=== PATIENT | female | born 1980 | race Caucasian/White ===

== ENCOUNTER 2016-11-17 12:13 | Emergency (ER) | payer MEDICAID ==
[~2016-11-17] VITALS: Ht 170.2 cm; Wt 84.0 kg
[~2016-11-17 12:13] MED LIST: ARIP30TA PO; ASPI-621 PO; CITA20TA9 PO; DOCU-30 PO; FOLI-17 PO; OXYC5TAB3 PO; QUET300T5 PO; RISP2TAB3 PO; VENL75TA PO; WARF5TAB7 PO; ZIPR20CA3 PO
[2016-11-17] MEDS ORDERED: ASPI-496 PO (12:29)
[2016-11-17] MEDS ORDERED: SODIUM CHLORIDE 0.9%, 500ML IVBOLUS ONE (13:00)
[2016-11-17 13:07] LABS: BLOOD UREA NITROGEN 8 mg/dL (7-18)
[2016-11-17 13:44] VITALS: BP 115/73
[2016-11-17] MEDS ORDERED: OMNIPAQUE 350 MG/ML, 100ML BOTTLE ONE (14:15)
[2016-11-17] MEDS ORDERED: MORPHINE SULFATE 4 MG/ML, 1ML ONE (14:21)
[2016-11-17] MEDS ORDERED: MORPHINE SULFATE 4 MG/ML, 1ML IVPush ONE (15:00)
[2016-11-17] MEDS ORDERED: PHYTONADIONE 5 MG TABLET PO ONE (15:30)
[2016-11-17 16:14] LABS: PATH.CAST-FLAG NOT PRESENT; SPERM-FLAG NOT PRESENT; SRC-FLAG NOT PRESENT; XTAL-FLAG NOT PRESENT; YLC-FLAG NOT PRESENT
== END 2016-11-17 17:02 | disposition home or self-care (01) ==
LOC: ED 16:36
DX: R10.9 Unspecified abdominal pain (principal); R79.1 Abnormal coagulation profile; M54.9 Dorsalgia, unspecified
CPT/HCPCS: 36415; 74177; 80048; 81001; 82040; 84703; 85025; 85610; 96361; 96374; 99285; J7040; Q9967

== ENCOUNTER 2016-11-18 08:26 | Inpatient (IN) | payer MEDICAID ==
[~2016-11-18] VITALS: Ht 170.2 cm; Wt 86.8 kg
[~2016-11-18 08:26] MED LIST changes: +ASPI-496 PO
[2016-11-18 09:13] LABS: BLOOD UREA NITROGEN 5 mg/dL (7-18)
[2016-11-18] MEDS ORDERED: HYDROcodone/APAP 10/325 MG TABLET ONE (11:17)
[2016-11-18] MEDS ORDERED: PHYTONADIONE 10 MG/ML, 1ML IV ONE (11:30)
[2016-11-18] MEDS ORDERED: HYDROcodone/APAP 10/325 MG TABLET PO ONE (11:30)
[2016-11-18] MEDS ORDERED: BISACODYL 10 MG SUPP PR PRN (12:00)
[2016-11-18] MEDS ORDERED: POLYETHYLENE GLYCOL 17 GM PACKET PO PRN (12:00)
[2016-11-18] MEDS ORDERED: OXYcodone IR 5MG TABLET PO PRN (12:00)
[2016-11-18] MEDS ORDERED: PHYTONADIONE 5 MG in SODIUM CHLORIDE 0.9% 50 ML IV ONE (12:00)
[2016-11-18] MEDS ORDERED: ENALAPRILAT 1.25 MG/ML, 2ML IVPush PRN (12:00)
[2016-11-18] MEDS ORDERED: ONDANSETRON 2MG/ML, 2ML IVPush PRN (12:00)
[2016-11-18] MEDS ORDERED: PHYTONADIONE 10 MG/ML, 1ML IM ONE (12:00)
[2016-11-18] MEDS ORDERED: DOCUSATE 100 MG CAPSULE PO PRN (12:00)
[2016-11-18] MEDS ORDERED: LABETALOL 5MG/ML 40ML VIAL IVPush PRN (12:00)
[2016-11-18 12:30] LABS: TOTAL IRON BINDING CAPACITY 330 mcg/dL (250-450); TRANSFERRIN 276 mg/dL (200-360)
[2016-11-18 12:45] VITALS: BP 93/49
[2016-11-18 13:42] VITALS: BP 108/65
[2016-11-18] MEDS: NS + 20MEQ KCL 1,000 ML IV SCH ×2 (13:43→22:57)
[2016-11-18] MEDS: IRON SUCROSE COMPLEX 100MG/5ML IV SCH (13:43)
[2016-11-18] MEDS: morphine SULFATE 10 MG/ML, 1ML IVPush PRN (13:44)
[2016-11-18 19:09] VITALS: BP_SYST 124; BP_SYST 92; BP_DIAS 51; BP_DIAS 81
[2016-11-19 01:10] VITALS: BP 95/57
[2016-11-19 05:16] LABS: ASPARTATE AMINO TRANSFERASE 45 U/L (15-37); BLOOD UREA NITROGEN 4 mg/dL (7-18)
[2016-11-19 07:15] VITALS: BP 101/64
[2016-11-19] MEDS ORDERED: HEPARIN 5,000 UNITS/ML, 1ML IV ONE ×2 (07:30→12:30)
[2016-11-19] MEDS: MULTIVITAMIN 1 TABLET PO SCH (08:16)
[2016-11-19] MEDS: IRON SUCROSE COMPLEX 100MG/5ML IV SCH (08:16)
[2016-11-19] MEDS: NS + 20MEQ KCL 1,000 ML IV SCH (08:16)
[2016-11-19] MEDS: morphine SULFATE 10 MG/ML, 1ML IVPush PRN (08:24)
[2016-11-19] MEDS ORDERED: MAGNESIUM SULFATE PMX 2GM/50ML 50 ML IV ONE (11:00)
[2016-11-19] MEDS: HEPARIN 25,000 UNITS/500ML PMX 500 ML IV PRN (12:17)
[2016-11-19 13:05] VITALS: BP 105/65
[2016-11-19] MEDS ORDERED: WARFARIN 5 MG TABLET PO-COUM SCH (18:00)
[2016-11-19] MEDS: HEPARIN 5,000 UNITS/ML, 1ML IV PRN (19:18)
[2016-11-19 19:31] VITALS: BP 94/62
[2016-11-19] MEDS: IBUPROFEN 200 MG TABLET PO PRN (21:18)
[2016-11-19] MEDS: CALCIUM CARBONATE 500 MG TAB.CHEW PO SCH (21:18)
[2016-11-20 02:35] VITALS: BP 84/45
[2016-11-20] MEDS: HEPARIN 5,000 UNITS/ML, 1ML IV PRN ×3 (02:50→17:04)
[2016-11-20 02:56] VITALS: BP 96/57
[2016-11-20 06:45] LABS: ASPARTATE AMINO TRANSFERASE 35 U/L (15-37); BLOOD UREA NITROGEN 6 mg/dL (7-18)
[2016-11-20 08:41] VITALS: BP 98/67
[2016-11-20] MEDS: MULTIVITAMIN 1 TABLET PO SCH (09:46)
[2016-11-20] MEDS: IRON SUCROSE COMPLEX 100MG/5ML IV SCH (09:46)
[2016-11-20] MEDS: CALCIUM CARBONATE 500 MG TAB.CHEW PO SCH ×2 (09:46→19:53)
[2016-11-20] MEDS: IBUPROFEN 200 MG TABLET PO PRN (09:56)
[2016-11-20] MEDS: HEPARIN 25,000 UNITS/500ML PMX 500 ML IV PRN (12:38)
[2016-11-20 13:32] VITALS: BP 96/60
[2016-11-20] MEDS ORDERED: WARFARIN 5 MG TABLET PO-COUM ONE (18:00)
[2016-11-20 19:28] VITALS: BP 95/51
[2016-11-21 03:37] VITALS: BP 98/54
[2016-11-21 05:09] LABS: BLOOD UREA NITROGEN 3 mg/dL (7-18)
[2016-11-21] MEDS: HEPARIN 25,000 UNITS/500ML PMX 500 ML IV PRN (05:36)
[2016-11-21 06:50] VITALS: BP 96/57
[2016-11-21] MEDS: HEPARIN 5,000 UNITS/ML, 1ML IV PRN (06:56)
[2016-11-21] MEDS ORDERED: POTASSIUM CHLORIDE 20 MEQ TAB.ER.PRT PO ONE (08:00)
[2016-11-21] MEDS: CALCIUM CARBONATE 500 MG TAB.CHEW PO SCH (13:15)
[2016-11-21] MEDS: MULTIVITAMIN 1 TABLET PO SCH (13:15)
[2016-11-21 13:23] VITALS: BP 102/61
[2016-11-21] MEDS ORDERED: WARF1POW PO (13:59)
[2016-11-21] MEDS ORDERED: WARF2.5T73 PO (14:04)
[2016-11-21] MEDS ORDERED: WARFARIN 2.5 MG TABLET PO-COUM ONE (18:00)
== END 2016-11-21 15:22 | disposition home or self-care (01) | DRG 948 ==
LOC: ED 08:47 → EDIP 11:18 → 3NE 12:29
PROVIDERS: ADMIT Hospitalist; ATTEND Hospitalist
DX: R79.1 Abnormal coagulation profile (principal); E44.1 Mild protein-calorie malnutrition; R10.30 Lower abdominal pain, unspecified; I34.0 Nonrheumatic mitral (valve) insufficiency; F31.9 Bipolar disorder, unspecified; F20.9 Schizophrenia, unspecified; F43.10 Post-traumatic stress disorder, unspecified; D53.9 Nutritional anemia, unspecified; Z95.2 Presence of prosthetic heart valve; F19.10 Other psychoactive substance abuse, uncomplicated; F17.200 Nicotine dependence, unspecified, uncomplicated; D50.9 Iron deficiency anemia, unspecified; Z79.01 Long term (current) use of anticoagulants; Z68.30 Body mass index [BMI] 30.0-30.9, adult
CPT/HCPCS: 36415; 70450; 80048; 80053; 80061; 80307; 82040; 82728; 83036; 83540; 83550; 83690; 83735; 84439; 84443; 84466; 85025; 85520; 85610; 99285; J1644; J1756; J3430; J3480; J2270; J3475

== ENCOUNTER 2018-03-09 18:50 | Emergency (ER) | payer MEDICAID ==
[~2018-03-09] VITALS: Ht 172.7 cm; Wt 83.6 kg
[~2018-03-09 18:50] MED LIST changes: -ARIP30TA PO; +ARIP30TA4 PO; +DOCU-131 PO; -DOCU-30 PO; +WARF-36 PO; +WARF1POW PO; +WARF2.5T73 PO; -WARF5TAB7 PO
[2018-03-09 19:34] LABS: BASOPHILS # (AUTO) 0.02 x10^3/uL (0-0.1); BASOPHILS % (AUTO) 1 % (0-1); EOSINOPHILS # (AUTO) 0.08 x10^3/uL (0-0.4); EOSINOPHILS % (AUTO) 2 % (1-7); LYMPHOCYTES # (AUTO) 0.86 x10^3/uL (1-3.4); LYMPHOCYTES % (AUTO) 21 % (22-44); MD NO; MEAN CORPUSCULAR HEMOGLOBIN 29.4 pg (27.0-34.8); MEAN CORPUSCULAR HGB CONC 33.1 g/dL (32.4-35.8); MEAN PLATELET VOLUME 7.1 fL (7.4-10.4); MONOCYTES % (AUTO) 12 % (2-9); NEUTROPHILS # (AUTO) 2.62 x10^3/uL (1.8-6.8); NEUTROPHILS % (AUTO) 64 % (42-75); PLATELET COUNT 318 x10^3/uL (130-400); RED BLOOD COUNT 3.61 x10^6/uL (3.82-5.3); RED CELL DISTRIBUTION WIDTH 16.8 % (9.6-15.2)
[2018-03-09 19:43] LABS: INTERNATIONAL NORMALIZED RATIO 1.01 (0.93-1.1); PROTHROMBIN TIME 10.5 Seconds (9.6-11.5)
[2018-03-09 19:45] LABS: ALBUMIN 3.2 g/dL (3.4-5.0); ANION GAP 7 mmol/L (5-15); CALCIUM 8.2 mg/dL (8.5-10.1); CHLORIDE 111 mmol/L (98-107); CREATININE 0.68 mg/dL (0.55-1.02)
[2018-03-09 19:50] VITALS: BP 92/50
== END 2018-03-09 20:52 | disposition home or self-care (01) ==
LOC: ED 20:46
DX: J18.9 Pneumonia, unspecified organism (principal); D53.9 Nutritional anemia, unspecified; F15.10 Other stimulant abuse, uncomplicated
CPT/HCPCS: 36415; 71045; 80048; 82040; 85025; 85610; 93005; 99285

== ENCOUNTER 2019-07-04 10:50 | Emergency (ER) | payer MEDICAID ==
[~2019-07-04] VITALS: Ht 170.2 cm; Wt 76.7 kg
[~2019-07-04 10:50] MED LIST changes: -ASPI-621 PO; +ASPI81TA45 PO; +WARF2.5T32 PO; -WARF2.5T73 PO
[2019-07-04 10:53] VITALS: BP 129/83
--- NOTE | 2019-07-04 11:09 | NUR ---
PT PRESENTING TO ER FOR PAINFUL BUMP ON RIGHT PERIRECTAL AREA X 3WKS. MD TO BEDSIDE FOR ASSESSMENT. PLAN FOR PT TO BE SENT HOME WITH ABX OINTMENT. AWAITING DC PAPERS AT THIS TIME
== END 2019-07-04 11:22 | disposition home or self-care (01) ==
LOC: ED 11:00
DX: L73.8 Other specified follicular disorders (principal); F17.200 Nicotine dependence, unspecified, uncomplicated
CPT/HCPCS: 99283

== ENCOUNTER 2020-11-07 17:51 | Emergency (ER) | payer MEDICAID ==
[~2020-11-07] VITALS: Ht 172.7 cm; Wt 78.9 kg
[~2020-11-07 17:51] MED LIST changes: -FOLI-17 PO; +FOLI1TAB32 PO; -OXYC5TAB3 PO; +OXYC5TAB98 PO; -RISP2TAB3 PO; +RISP2TAB80 PO
[2020-11-07 17:54] VITALS: BP 101/56
== END 2020-11-07 19:20 | disposition home or self-care (01) ==
LOC: ED 19:07
DX: F15.10 Other stimulant abuse, uncomplicated (principal); R19.7 Diarrhea, unspecified
CPT/HCPCS: 99281